=== PATIENT | male | born 1985 | race Two or more races ===

== ENCOUNTER 2019-11-26 14:40 | Inpatient (IN) | payer OTHER ==
[~2019-11-26] VITALS: Ht 170.2 cm; Wt 76.3 kg
[2019-11-26] MEDS ORDERED: LIDOCAINE 1% (LOCAL ANESTH.) PF 5ml SDV ID ONE (15:00)
[2019-11-26] MEDS ORDERED: BACITRACIN TOP OINT 1 UD PKG TOP ONE (15:00)
[2019-11-26] MEDS ORDERED: TETANUS-DIPTH-ACEL PERTUSSIS 0.5ML SYR Tdap IM ONE (15:15)
[2019-11-26 15:29] LABS: Basophils # (auto) 0.1 10 ^3/uL (0-0.2); Basophils % (auto) 0.7 % (0.0-2.0); Eosinophils # (auto) 0.1 10 ^3/uL (0-0.8); Eosinophils % (auto) 1.8 % (0.0-7.0); Hematocrit 45.8 % (41.0-53.0); Hemoglobin 16.1 g/dL (13.5-17.5); Lymphocytes # (auto) 1.1 10 ^3/uL (0.4-5.4); Lymphocytes % (auto) 13.7 % (10.0-50.0); Mean Corpuscular Hemoglobin 30.5 pg (28.0-32.0); Mean Corpuscular Hgb Conc. 35.3 g/dL (32.0-36.0); Mean Corpuscular Volume 86.5 fL (80.0-100.0); Monocytes # (auto) 0.7 10 ^3/uL (0-1.3); Monocytes % (auto) 8.3 % (0.0-12.0); Neutrophils # (auto) 5.9 10 ^3/uL (1.6-8.6); Neutrophils % (auto) 75.5 % (37.0-80.0); Nucleated Red Blood Cells % 0.2 %; Platelet Count (auto) 155 10^3/uL (140-450); Red Blood Cells 5.29 10^6/uL (4.5-5.90); Red Cell Distribution Width 13.1 % (11.8-14.3); White Blood Cell 7.9 10^3/uL (4.4-10.8)
[2019-11-26] MEDS ORDERED: LIDOCAINE 2% (LOCAL ANESTH.) PF 5ml SDV ONE (15:34)
[2019-11-26 15:45] LABS: Alanine Aminotransferase 225 U/L (16-61); Albumin 4.4 g/dL (3.4-5.0); Anion Gap 8 (5-15); Aspartate Aminotransferase 78 U/L (15-37); BUN/Creatinine Ratio 15.1; Blood Alcohol < 3.0 mg/dL (0-5); Blood Urea Nitrogen 14 mg/dL (7-18); Calcium 9.1 mg/dL (8.5-10.1); Carbon Dioxide 27 mmol/L (21-32); Chloride 102 mmol/L (98-107); GFR African American 121 mL/min; GFR Non-African American 100 mL/min; Glucose 101 mg/dL (74-106); Potassium 3.9 mmol/L (3.5-5.1); Sodium 137 mmol/L (136-145)
[2019-11-26 15:48] LABS: Alkaline Phosphatase 73 U/L (45-117); Bilirubin, Total 0.5 mg/dL (0.2-1.0)
--- NOTE | 2019-11-26 17:25 | NUR ---
Pt Arrived On Unit Pt arrived on unit via wheelchair from ED accompanied by 2 guards. Pt is a/ox4 with no s/s of distress or SOB. Pt was able to ambulate to bed without difficulty. Safety measures maintained with call light within reach, bed in lowest position and side rails up. Will continue to monitor.
--- NOTE | 2019-11-26 17:30 | NUR ---
Seizure Precautions Side rails padded for seizure precautions.
[2019-11-26 17:35] VITALS: BP 134/77
[2019-11-26] MEDS ORDERED: MIRT30TA PO (17:44)
[2019-11-26] MEDS ORDERED: OXCA300T26 PO (17:44)
--- NOTE | 2019-11-26 17:55 | NUR ---
Wound Photos Taken for Reference Photo of laceration to pr's L forehead.
--- NOTE | 2019-11-26 19:45 | NUR ---
assumed care, pt. awake, guards at bedside, no c/o pain, no sob.
[2019-11-26] MEDS: OXcarbazepine 300 MG TAB PO SCH (21:15)
[2019-11-26 22:00] VITALS: BP 127/78
[2019-11-27 05:00] VITALS: BP 129/73
--- NOTE | 2019-11-27 07:30 | NUR ---
Opening Shift Note Assumed care of patient, awake and alert. No S/S of distress/SOB or pain. Instructed on POC and to call for assist PRN, will continue to monitor for changes Q1hr and PRN. Patient is an inmate. Guards at bedside.
--- NOTE | 2019-11-27 07:51 | NUR ---
Swelling and bruising noted over left eye. Will continue to monitor.
[2019-11-27 09:00] VITALS: BP 123/77
--- NOTE | 2019-11-27 09:02 | NUR ---
Patient requesting pain medication. No medication is ordered. Page placed to Dr. Azar.
--- NOTE | 2019-11-27 09:43 | NUR ---
Return call from Dr. Azar. Order for [place] received.
[2019-11-27] MEDS: MIRTAZAPINE 30 MG TAB PO SCH (10:17)
[2019-11-27] MEDS: OXcarbazepine 300 MG TAB PO SCH (10:17)
[2019-11-27] MEDS: HYDROcodone-ACET 10/325MG TAB PO PRN ×3 (10:17→22:27)
--- NOTE | 2019-11-27 11:00 | NUR ---
WOUND CARE NOTE: PATIENT RECENTLY ADMITTED TO [facility] WITH DIAGNOSIS OF SYNCOPE. PATIENT IS S/P FALL WITH LACERATION TO THE PERIORBITAL LEFT EYE/FOREHEAD. WOUND PHOTO TAKEN AT THAT TIME BY BEDSIDE NURSE PER PROTOCOL. PATIENT HAS CURRENT LAZARO SCORE OF 20. HE IS FULLY AMBULATORY, CAN SELF TURN/REPOSITION SELF. PATIENT HAS A WELL APPROXIMATED SUTURED LACERATION TO THE LEFT PERIORBITAL EYE/FOREHEAD. LEFT OPEN TO AIR, NO DRAINAGE OR OPEN AREAS NOTED. SKIN/WOUND CARE PLAN IN PLACE. NO OTHER SKIN INTEGRITY ISSUES NOTED. NO WOUND CARE MONITORING IS NEEDED AT THIS TIME. Addendum: 11/27/19 at 1452 by Lucia Mayorga RN Amended: Links added.
--- NOTE | 2019-11-27 11:45 | NUR ---
Dr. Sutherland in to see patient as primary MD.
[2019-11-27 13:00] VITALS: BP 130/77
[2019-11-27] MEDS ORDERED: LORazepam 2MG/ML-1ML VIAL IV PRN (16:15)
[2019-11-27 17:00] VITALS: BP 110/71
[2019-11-27] MEDS: ceFAZolin 1GM/50ML 50 ML IV SCH ×2 (17:40→23:54)
--- NOTE | 2019-11-27 17:48 | NUR ---
Patient C/O pain to left eye 01/25. [facility] PO given.
--- NOTE | 2019-11-27 19:25 | NUR ---
Opening Shift Note Received report from Laura WHITAKER. Assumed care of patient, awake and alert. [facility] guards at bedside. No S/S of distress/SOB or pain. Instructed on POC and to call for assist PRN, will continue to monitor for changes Q1hr and PRN.
[2019-11-27 22:00] VITALS: BP 122/72
--- NOTE | 2019-11-27 22:27 | NUR ---
Patient complains of L eye and nape pain, [place] PO given. Continue care.
[2019-11-28 05:00] VITALS: BP 113/73
[2019-11-28] MEDS: ceFAZolin 1GM/50ML 50 ML IV SCH ×4 (06:10→23:56)
--- NOTE | 2019-11-28 07:30 | NUR ---
Opening Shift Note Assumed care of patient, awake and alert. No S/S of distress/SOB. Pain reported to the left orbital area. Pain management options discussed with patient. Instructed on POC and to call for assist PRN, will continue to monitor for changes Q1hr and PRN.
[2019-11-28 08:00] VITALS: BP 131/80
[2019-11-28 09:26] VITALS: BP 131/80
[2019-11-28] MEDS: HYDROcodone-ACET 10/325MG TAB PO PRN ×4 (09:28→21:58)
[2019-11-28] MEDS: MIRTAZAPINE 30 MG TAB PO SCH (09:28)
[2019-11-28] MEDS ORDERED: NAPROXEN 500 MG TAB PO PRN (12:00)
[2019-11-28] MEDS: ENOXAPARIN SOD 40 MG/0.4 ML SYRINGE SC SCH (12:30)
[2019-11-28 13:00] VITALS: BP 131/76
[2019-11-28 17:05] VITALS: BP 122/70
--- NOTE | 2019-11-28 19:20 | NUR ---
Opening Shift Note Received report from Jaswant WHITAKER. Assumed care of patient, awake and alert. [employer] guard at bedside. No S/S of distress/SOB or pain. Instructed on POC and to call for assist PRN, will continue to monitor for changes Q1hr and PRN.
--- NOTE | 2019-11-28 21:43 | NUR ---
Dr. Guadalupe Gan at bedside.
[2019-11-28] MEDS: OXcarbazepine 300 MG TAB PO SCH (21:58)
[2019-11-28 22:00] VITALS: BP 117/74
[2019-11-29 04:40] VITALS: BP 135/73
[2019-11-29] MEDS: ceFAZolin 1GM/50ML 50 ML IV SCH ×2 (05:56→12:01)
[2019-11-29] MEDS: HYDROcodone-ACET 10/325MG TAB PO PRN ×2 (06:23→10:51)
--- NOTE | 2019-11-29 07:30 | NUR ---
Opening Shift Note Assumed care of patient. Patient is awake, alert, and oriented X 4. No S/S of respiratory distress/SOB reported or noted. Patient reports pain in left forehead and orbital area and states he can tolerate it. Pain management options discussed with patient. Bed in lower position, brakes locked, call light within reach. Patient is instructed on POC and to call for assistance PRN. Will continue to monitor for changes Q1hr and PRN.
--- NOTE | 2019-11-29 07:32 | NUR ---
Patient stable, still with moderate pain. Endorsed care to Chantale WHITAKER.
[2019-11-29 08:00] VITALS: BP 140/89
--- NOTE | 2019-11-29 08:00 | NUR ---
Received pt resting in bed, call light within reach, lt eyebrow laceration, guards at bed side to see pt, will continue to monitor pt.
[2019-11-29 09:00] VITALS: BP 140/89
[2019-11-29] MEDS: ENOXAPARIN SOD 40 MG/0.4 ML SYRINGE SC SCH (09:54)
[2019-11-29] MEDS: OXcarbazepine 300 MG TAB PO SCH (09:54)
[2019-11-29] MEDS: MIRTAZAPINE 30 MG TAB PO SCH (09:54)
--- NOTE | 2019-11-29 10:45 | NUR ---
PAIN ASSESSMENT PATIENT REPORTS PAIN IN R. SIDE OF THE FACE 9 OUT OF 10. WILL BE MEDICATED PER DR'S ORDER.
--- NOTE | 2019-11-29 11:50 | NUR ---
Pain reassessment Pain reassessment performed. Patient states pain 5 out 0f 10. And states it is tolerable. Will continue to monitor.
--- NOTE | 2019-11-29 11:55 | NUR ---
Dr. Sutherland at bed side to see pt. Doctor discussed the plan of care with pt.
[2019-11-29 13:00] VITALS: BP 150/88
[2019-11-29 13:24] VITALS: BP 150/88
--- NOTE | 2019-11-29 14:26 | NUR ---
Discharge instructions given as ordered. Encourage to follow up with PMD as instructed. All questions and concerns addressed. Patient verbalized understanding. Medication reconciliation form completed and copy given to patient. No home medications held in Pharmacy, and no needed vaccines to be given. IV removed with catheter intact, pressure dressing applied. Telemetry unit returned to ICU. Patient taken to vehicle by intermediate guards with all personal belongings, accompanied by intermediate guards. No distress noted at time of departure.
== END 2019-11-29 14:26 | DRG 125 ==
LOC: EDBD 14:40 → EEVIPCON 14:40 → ER 14:40 → OVERFLOW 14:41 → WEST WING 17:34 → TELE-WESTW 11-27 13:14
PROVIDERS: ADMIT Internal Medicine; ATTEND Internal Medicine
PROC: 0HQ1XZZ Repair Face Skin, External Approach (ICD-10-PCS; principal; 2019-11-26)
DX: S01.112A Laceration without foreign body of left eyelid and periocular area, initial encounter (principal); R55 Syncope and collapse; S01.81XA Laceration without foreign body of other part of head, initial encounter; G56.11 Other lesions of median nerve, right upper limb; G56.01 Carpal tunnel syndrome, right upper limb; H00.034 Abscess of left upper eyelid; F31.9 Bipolar disorder, unspecified; B19.20 Unspecified viral hepatitis C without hepatic coma; Z79.899 Other long term (current) drug therapy; Z82.49 Family history of ischemic heart disease and other diseases of the circulatory system
CPT/HCPCS: 12013; 36415; 70450; 70551; 80053; 80320; 84443; 85025; 90471; 90715; 93306; 95819; G0378; J0690; J2001

== ENCOUNTER 2019-12-22 13:40 | Inpatient (IN) | payer OTHER ==
[~2019-12-22] VITALS: Ht 182.9 cm; Wt 73.3 kg
[~2019-12-22 13:40] MED LIST: MIRT30TA PO; OXCA300T26 PO
[2019-12-22 14:19] LABS: Basophils # (auto) 0 10 ^3/uL (0-0.2); Basophils % (auto) 0.2 % (0.0-2.0); Eosinophils # (auto) 0.1 10 ^3/uL (0-0.8); Hematocrit 44.8 % (41.0-53.0); Hemoglobin 15.5 g/dL (13.5-17.5); Lymphocytes # (auto) 0.7 10 ^3/uL (0.4-5.4); Lymphocytes % (auto) 8.1 % (10.0-50.0); Mean Corpuscular Hemoglobin 29.9 pg (28.0-32.0); Mean Corpuscular Hgb Conc. 34.5 g/dL (32.0-36.0); Mean Corpuscular Volume 86.7 fL (80.0-100.0); Monocytes # (auto) 0.6 10 ^3/uL (0-1.3); Monocytes % (auto) 7.2 % (0.0-12.0); Neutrophils # (auto) 7.4 10 ^3/uL (1.6-8.6); Neutrophils % (auto) 83.5 % (37.0-80.0); Nucleated Red Blood Cells % 0.1 %; Platelet Count (auto) 159 10^3/uL (140-450); Red Blood Cells 5.16 10^6/uL (4.5-5.90); White Blood Cell 8.8 10^3/uL (4.4-10.8)
[2019-12-22 14:37] LABS: Albumin 3.9 g/dL (3.4-5.0); BUN/Creatinine Ratio 15.6; Calcium 8.3 mg/dL (8.5-10.1)
[2019-12-22 14:42] LABS: Bilirubin, Total 0.7 mg/dL (0.2-1.0); Total Protein 7.7 g/dL (6.4-8.2)
[2019-12-22] MEDS ORDERED: HYDROcodone-ACET 5/325MG TAB PO ONE (15:15)
[2019-12-22] MEDS ORDERED: NITROGLYCERIN 0.4 MG SL TAB SL PRN (16:45)
[2019-12-22] MEDS ORDERED: MORPHINE SULF INJ 2 MG/ML SYRINGE 1ML IV PRN (16:45)
[2019-12-22] MEDS ORDERED: ASPirin 81 mg TAB PO ONE (16:45)
[2019-12-22] MEDS: HYDROcodone-ACET 10/325MG TAB PO PRN (20:37)
[2019-12-22] MEDS ORDERED: SERT50TA PO (21:22)
[2019-12-22] MEDS: OXcarbazepine 300 MG TAB PO SCH (21:39)
[2019-12-22 22:00] VITALS: BP 145/81
[2019-12-22] MEDS ORDERED: MIRTAZAPINE 30 MG TAB PO SCH (22:00)
[2019-12-23] MEDS: D5W/SOD CHL 0.45% 1,000 ML IV SCH ×2 (01:46→21:31)
[2019-12-23 05:00] VITALS: BP_SYST 109; BP_SYST 115; BP_SYST 141; BP_DIAS 49; BP_DIAS 59; BP_DIAS 81
[2019-12-23] MEDS: HYDROcodone-ACET 10/325MG TAB PO PRN ×2 (07:58→12:26)
[2019-12-23 09:00] VITALS: BP 138/80
[2019-12-23] MEDS ORDERED: ADENOSINE 66 MG in GIVE UN-DILUTED 0 ML IV STA (09:56)
[2019-12-23] MEDS: ENOXAPARIN SOD 40 MG/0.4 ML SYRINGE SC SCH (10:00)
[2019-12-23] MEDS: SERTRALINE HCL 50 MG TAB PO SCH (12:19)
[2019-12-23] MEDS: OXcarbazepine 300 MG TAB PO SCH (12:19)
[2019-12-23] MEDS: ASPirin 81 mg TAB PO SCH (12:19)
[2019-12-23 13:00] VITALS: BP 131/77
[2019-12-23] MEDS: traMADol HCL 50 MG TAB PO PRN (19:54)
[2019-12-23] MEDS: NAPROXEN 500 MG TAB PO SCH (21:45)
[2019-12-23] MEDS: PHENYTOIN SODIUM 100 MG CAP PO SCH (21:45)
[2019-12-23 22:00] VITALS: BP_SYST 134; BP_SYST 148; BP_SYST 150; BP_DIAS 109; BP_DIAS 84; BP_DIAS 90
[2019-12-24] MEDS: traMADol HCL 50 MG TAB PO PRN ×3 (01:59→17:54)
[2019-12-24 05:00] VITALS: BP_SYST 128; BP_SYST 133; BP_SYST 137; BP_DIAS 82; BP_DIAS 84; BP_DIAS 94
[2019-12-24 09:00] VITALS: BP 129/75
[2019-12-24] MEDS: SERTRALINE HCL 50 MG TAB PO SCH (09:41)
[2019-12-24] MEDS: ASPirin 81 mg TAB PO SCH (09:41)
[2019-12-24] MEDS: NAPROXEN 500 MG TAB PO SCH ×2 (09:41→22:38)
[2019-12-24] MEDS: ENOXAPARIN SOD 40 MG/0.4 ML SYRINGE SC SCH (09:41)
[2019-12-24 13:00] VITALS: BP 124/89
[2019-12-24 16:27] VITALS: BP 115/83
[2019-12-24] MEDS: D5W/SOD CHL 0.45% 1,000 ML IV SCH (16:57)
[2019-12-24] MEDS: PHENYTOIN SODIUM 100 MG CAP PO SCH (22:37)
[2019-12-24 23:14] VITALS: BP_SYST 125; BP_SYST 131; BP_SYST 142; BP_DIAS 71; BP_DIAS 83; BP_DIAS 97
[2019-12-25] MEDS: traMADol HCL 50 MG TAB PO PRN ×4 (01:19→19:43)
[2019-12-25 05:00] VITALS: BP_SYST 117; BP_SYST 125; BP_SYST 144; BP_DIAS 71; BP_DIAS 75; BP_DIAS 85
[2019-12-25 09:00] VITALS: BP 117/77
[2019-12-25] MEDS: NAPROXEN 500 MG TAB PO SCH ×2 (09:45→21:24)
[2019-12-25] MEDS: ASPirin 81 mg TAB PO SCH (09:45)
[2019-12-25] MEDS: SERTRALINE HCL 50 MG TAB PO SCH (09:45)
[2019-12-25] MEDS: ENOXAPARIN SOD 40 MG/0.4 ML SYRINGE SC SCH (09:46)
[2019-12-25 13:00] VITALS: BP 126/79
[2019-12-25] MEDS: D5W/SOD CHL 0.45% 1,000 ML IV SCH (13:30)
[2019-12-25] MEDS: GABAPENTIN 100 MG CAP PO SCH ×2 (14:55→21:23)
[2019-12-25 17:00] VITALS: BP 138/84
[2019-12-25 22:00] VITALS: BP_SYST 121; BP_SYST 123; BP_DIAS 63; BP_DIAS 81; BP_DIAS 87
[2019-12-26] MEDS: traMADol HCL 50 MG TAB PO PRN (02:32)
[2019-12-26 05:00] VITALS: BP_SYST 116; BP_SYST 118; BP_SYST 120; BP_DIAS 71; BP_DIAS 83; BP_DIAS 86
[2019-12-26] MEDS: GABAPENTIN 100 MG CAP PO SCH ×2 (05:31→14:30)
[2019-12-26] MEDS: D5W/SOD CHL 0.45% 1,000 ML IV SCH (10:03)
[2019-12-26] MEDS: NAPROXEN 500 MG TAB PO SCH (10:03)
[2019-12-26 12:56] VITALS: BP 128/81
== END 2019-12-26 15:00 | DRG 312 ==
LOC: EDBD 13:40 → EEVIPCON 13:40 → ER 13:40 → TELE 13:41 → TELE-WESTW 19:14
PROVIDERS: ADMIT Internal Medicine; ATTEND Internal Medicine
DX: R55 Syncope and collapse (principal); R79.89 Other specified abnormal findings of blood chemistry; F31.9 Bipolar disorder, unspecified; R74.8 Abnormal levels of other serum enzymes; S00.03XA Contusion of scalp, initial encounter; J32.2 Chronic ethmoidal sinusitis; X58.XXXA Exposure to other specified factors, initial encounter; G40.909 Epilepsy, unspecified, not intractable, without status epilepticus; Z79.899 Other long term (current) drug therapy; Z82.0 Family history of epilepsy and other diseases of the nervous system; Z82.49 Family history of ischemic heart disease and other diseases of the circulatory system; Z87.891 Personal history of nicotine dependence; Z83.3 Family history of diabetes mellitus; Y93.89 Activity, other specified; Y92.89 Other specified places as the place of occurrence of the external cause; Y99.8 Other external cause status
CPT/HCPCS: 36415; 70450; 70551; 72125; 78452; 80053; 84484; 85025; 93005; 93017; 95819; 99291; G0378; J0153